=== PATIENT | male | born 1955 | race Caucasian/White ===

== ENCOUNTER → 2016-11-12 | Outpatient (CLI) | payer BC ==
[~2016-11-12] MED LIST: ASPIRIN 81M81 MG/TA2 PO; CORDARONE200 MG/TAB PO; CRANBERRY500 M3 PO; LIPITOR 80MG80 MG PO; TOPROL XL 25MG25 MG PO; VITAMIN D 1001000 IU PO
[2016-11-12 10:44] VITALS: BP 132/75; PULSE 66
[2016-11-12 12:03] VITALS: BP 139/78; PULSE 59
[2016-11-12 12:05] VITALS: BP 151/80; PULSE 106
[2016-11-12 12:06] VITALS: BP 152/89; PULSE 111
[2016-11-12 12:07] VITALS: BP 165/83; PULSE 97
[2016-11-12 12:09] VITALS: BP 159/83; PULSE 94
== END ==
LOC: COL.CARD 10:27
DX: I25.10 Atherosclerotic heart disease of native coronary artery without angina pectoris (principal)
CPT/HCPCS: A9502; J2785

== ENCOUNTER 2023-11-08 05:51 | Emergency (ER) | payer MEDICARE, OTHER ==
[~2023-11-08] VITALS: Ht 177.8 cm; Wt 84.1 kg
[2023-11-08 05:54] VITALS: BP 166/102; TEMP 98.7
[2023-11-08] MEDS ORDERED: TESSALON P100 MG/CAP PO (06:27)
[2023-11-08 06:39] VITALS: PULSE 92
== END 2023-11-08 06:42 | disposition home or self-care (01) ==
LOC: COL.ER 05:51
DX: J10.1 Influenza due to other identified influenza virus with other respiratory manifestations (principal)